=== PATIENT | male | born 1980 | race Two or more races ===

== ENCOUNTER 2017-02-03 13:25 | Emergency (ER) | payer MEDICAID ==
[2017-02-03 13:41] VITALS: TEMP 98.1; O2SAT 97
[2017-02-03] MEDS ORDERED: ONDANSETRON 4 MG/2 ML VIAL IVP ONE (14:09)
[2017-02-03] MEDS ORDERED: NS 500 ML IV ONE (14:10)
[2017-02-03] MEDS ORDERED: ONDANSETRON 4 MG/2 ML VIAL ONE (14:16)
[2017-02-03] MEDS ORDERED: DEXAMETHASONE 10 MG/ML VIAL IVP ONE (14:32)
[2017-02-03] MEDS ORDERED: METOCLOPRAMIDE 10 MG/2 ML VIAL IVP ONE (14:32)
--- NOTE | 2017-02-03 14:37 | EDPHY ---
H & P Time Seen by Provider: 02/03/17 14:15 HPI/ROS: CHIEF COMPLAINT: Headache, right facial numbness HISTORY OF PRESENT ILLNESS: 36-year-old male with a history of migraine headaches presents with persistent headache and right facial numbness for 3 days. Onset of typical migraine headache 3 days ago, with a throbbing headache , nausea and light sensitivity. This headache has persisted much longer than usual and is now associated with right facial numbness. Moderate pain. He also has bilateral finger tip numbness today. Excedrin migraine with minimal relief. History of migraine headaches for the past 20 years. No recent head or neck trauma. No chiropractic manipulation. REVIEW OF SYSTEMS: Constitutional: No fever, no chills Eyes: No visual changes ENT: No sore throat Respiratory: No cough, no shortness of breath Cardiac: No chest pain Gastrointestinal: no abdominal pain Genitourinary: no dysuria Musculoskeletal: No leg pain or swelling Skin: No rash Psychiatric: No depression Past Medical/Surgical History: Migraine headaches Social History: Works as a product support sales representative at [employer] Smoking Status: Never smoked Physical Exam: General Appearance: Alert, pleasant, in dark room, appears in pain Eyes: Pupils equal and round, no conjunctival pallor or injection ENT, Mouth: Mucous membranes moist Neck: Normal inspection Respiratory: Lungs are clear to auscultation Cardiovascular: Regular rate and rhythm Gastrointestinal: Abdomen is soft and nontender Neurological: Alert, oriented x3, cranial nerves II through XII intact, motor 5 /5, sensory grossly intact Skin: Warm and dry Extremities: Normal inspection Psychiatric: Mood and affect normal Constitutional: Initial Vital Signs Temperature (C) 36.7 C 02/03/17 13:38 Heart Rate 85 02/03/17 13:38 Respiratory Rate 18 02/03/17 13:38 Blood Pressure 133/104 H 02/03/17 13:38 O2 Sat (%) 97 02/03/17 13:38 O2 Delivery Mode Room Air Allergies/Adverse Reactions: No Known Allergies Allergy (Verified 02/03/17 13:37) Home Medications: Medication Instructions Recorded NK [No Known Home Meds] 02/03/17 Medical Decision Making - Diagnostics Imaging Results: MRI brain: normal Imaging: Discussed imaging studies w/ order desk caller Radiologist, I viewed and interpreted images myself ED Course/Re-evaluation: This patient presents with a persistent headache and right facial paresthesias. No prior neuro imaging. MRI of the brain ordered at the patient's and his physician's request due to prolonged sx with neuro deficits. Decadron, Reglan and Benadryl IV given. The patient feels much better after IV medications. MRI results discussed. He is ready to go home. He will follow up with Neurology. Differential Diagnosis: Headache including but not limited to subarachnoid hemorrhage, migraine headache , tension headache and infectious causes such as meningitis, pharyngitis and sinusitis. - Data Points Medications Given: Discontinued Medications Dexamethasone (Decadron Injection) 10 mg IVP EDNOW ONE Stop: 02/03/17 14:33 Last Admin: 02/03/17 14:45 Dose: 10 mg Diphenhydramine HCl (Benadryl Injection) 25 mg IVP EDNOW ONE Stop: 02/03/17 14:33 Last Admin: 02/03/17 14:57 Dose: 25 mg Sodium Chloride (Ns) 500 mls @ 1,000 mls/hr IV ONCE ONE PRN Reason: Protocol Stop: 02/03/17 14:39 Last Admin: 02/03/17 14:18 Dose: 500 mls Metoclopramide HCl (Reglan Injection) 10 mg IVP EDNOW ONE Stop: 02/03/17 14:33 Last Admin: 02/03/17 14:57 Dose: 10 mg Ondansetron HCl (Zofran) 4 mg IVP EDNOW ONE Stop: 02/03/17 14:10 Last Admin: 02/03/17 14:18 Dose: 4 mg Departure - Departure Disposition: Home, Routine, Self-Care Clinical Impression: Migraine headache Condition: Good Instructions: Migraine Headache (ED) Referrals: Antonia Albarran MD [Primary Care Provider] - 2-3 days, if not improved Eric Zapata MD [Medical Doctor] - 5-7 days, call for appt.
[2017-02-03 16:17] VITALS: BP 127/87; PULSE 77; RESP 16
== END 2017-02-03 16:17 | disposition home or self-care (01) ==
DX: G43.909 Migraine, unspecified, not intractable, without status migrainosus (principal); E86.9 Volume depletion, unspecified
CPT/HCPCS: 96374; J1100; J1200; J2405; J2765